=== PATIENT | male | born 1995 | race Caucasian/White ===

== ENCOUNTER 2025-05-11 00:54 | Day surgery (SDC) | payer OTHER, SELFPAY ==
[2025-04-27 15:28] VITALS: BMI 20.5
[2025-05-11 08:16] VITALS: BP 106/68; PULSE 79; RESP 18; TEMP 36.6; O2SAT 100; BMI 19.5
--- NOTE | 2025-05-11 08:20 | WPDANESEPPF ---
Anes - Initial Pre Proc Eval Procedure: Operation Date: 05/11/25 09:30 Proposed Procedures p Diagnostic Colonoscopy - Jak Gibbons MD Date/Time: 05/11/25 08:20 Surgeon: Jak Gibbons MD Pre Op Diagnosis: Hemorrhage of anus and rectum Patient Data Age: 29 Gender: M Height: 1.85 m Weight: 67.4 kg Last Vital Signs Temp 36.6 C 05/11/25 08:16 Pulse 79 05/11/25 08:16 Resp 18 05/11/25 08:16 BP 106/68 05/11/25 08:16 Pulse Ox 100 05/11/25 08:16 O2 Del Method Room Air 05/11/25 08:16 Allergies Allergy/AdvReac Type Severity Reaction Status Date / Time No Known Allergies Allergy Verified 05/11/25 08:15 Home Medications ?Medication ?Instructions ?Recorded ?Confirmed ?Type No Home Medications 05/11/22 04/27/25 History Patient hx anesthesia problems: none Family hx anesthesia problems: none Results Review: All pre-operative results and documents have been reviewed as part of the pre-operative evaluation. [facility] Past Medical History Medical History ) Hemorrhoid Social History Social History ) Smoking packs per day: 0.5 Smoking cigarettes per day: 10.0 Years smoked: 7 Smoking pack-years: 3.50 Smoking status: Former smoker Tobacco type: cigarettes and e-cigarettes/vaping Alcohol intake: current Drinks per week: 6 Substance use: never Substance use type: does not use Living arrangements: with family Occupation/Education: occupation Gender identity (if verbalized by the patient): Male Spiritual care concerns: No Anes - Eval Final PreProcedure Day of Procedure 05/11/25 08:20 Patient weight: normal Heart: regular rate and rhythm Lungs: clear to auscultation and normal air movement Airway: Mallampati scale class II Neurological: alert and oriented Last oral intake: >/= 8 hours ASA classification: II Emergent: no Anesthetic plan: proceed Anesthesia type and monitoring: general GIVS and standard monitoring Results Review: All pre-operative results and documents have been reviewed as part of the pre-operative evaluation. Informed Consent: The patient's anesthetic plan and its attendant risks and benefits were discussed with the patient/family/POA. Questions were solicited and answers provided to the satisfaction of the patient/family/POA.
[2025-05-11] MEDS: LACTATED RINGERS 1,000 ML 150 ML IV CONT (08:27)
--- NOTE | 2025-05-11 08:45 | P.HP_ITS ---
History of Present Illness History of Present Illness Consent: Risks, benefits, and alternatives have been discussed and questions answered. Patient agrees to proceed with procedure. Chief complaint: Hemorrhage of anus and rectum Narrative: Nile Pham Jr. is a 29 year old male here for first colonoscopy, h/o constipation and blood in stools Review of Systems Review of Systems: All systems reviewed & are unremarkable except as noted in HPI and below PMFSH Past Medical History Medical History (Updated 05/11/25 @ 08:46 by Jak Gibbons MD) Blood in stool Hemorrhoid Social History Social History ) Smoking packs per day: 0.5 Smoking cigarettes per day: 10.0 Years smoked: 7 Smoking pack-years: 3.50 Smoking status: Former smoker Tobacco type: cigarettes and e-cigarettes/vaping Alcohol intake: current Drinks per week: 6 Substance use: never Substance use type: does not use Living arrangements: with family Occupation/Education: occupation Gender identity (if verbalized by the patient): Male Spiritual care concerns: No Meds Home Medications and Allergies Home Medications ?Medication ?Instructions ?Recorded ?Confirmed ?Type No Home Medications 05/11/22 04/27/25 H istory Allergies Allergy/AdvReac Type Severity Reaction Status Date / Time No Known Allergies Allergy Verified 05/11/25 08:15 Vital Signs Vital Signs - 24 hr 05/11/25 08:16 Temperature 97.8 F Pulse Rate 79 Respiratory Rate 18 Blood Pressure 106/68 Pulse Oximetry 100 Oxygen Delivery Room Air Exam Const: General: comfortable and no acute distress HENMT: Face/Nose/Sinus: Normal nares present Eyes: General: appearance normal, both eyes and all related structures Neck: Neck: no JVD Resp: Auscultation: clear to auscultation bilaterally Cardio: Rate: regular rate Rhythm: regular rhythm GI: Inspection: non-distended GI Palp: Yes Soft to palpation Skin: General skin exam: normal color Extrem: General: normal to inspection Psych: Mental Status: mental status grossly normal Assessment and Plan Assessment and plan (1) Blood in stool: Code(s): K92.1 - Melena Status: Acute Assessment and Plan: colonoscopy
[2025-05-11 09:00] VITALS: BP 93/58; PULSE 74; RESP 22; O2SAT 97
[2025-05-11 09:10] VITALS: BP 106/60; PULSE 70; RESP 23; O2SAT 97
[2025-05-11 09:20] VITALS: BP 108/70; PULSE 72; RESP 21; O2SAT 97
== END 2025-05-11 09:32 | disposition home or self-care (01) ==
PROVIDERS: PCP Nurse Practitioner Family; Referring Provider Nurse Practitioner Family; Visit Provider Internal Medicine Gastroenterology
PROC: 0DJD8ZZ Inspection of Lower Intestinal Tract, Via Natural or Artificial Opening Endoscopic (ICD-10-PCS; CPT 45378; principal; 2025-05-11 09:30)
DX: K64.4 Residual hemorrhoidal skin tags (principal); Z87.891 Personal history of nicotine dependence
CPT/HCPCS: 45378; J2704; J7120